=== PATIENT | female | born 1995 | race Two or more races ===

== ENCOUNTER 2019-02-01 23:06 | Emergency (ER) | payer MEDICAID ==
[~2019-02-01] VITALS: Ht 172.7 cm; Wt 68.5 kg
--- NOTE | 2019-02-01 23:20 | NUR ---
Pt. BIB [facility] for acute alcohol intoxication from home, pt. is drowsy w/ slurred speech, verbally responsive and obeys commands, RR even and unlabored, denies CP/JALLOH/F/C/SOB, states she had 2 cups of mixed run drink and smoked marijuana, roomate at bedside, VSS, bed in low position w/ guardrails up, monitoring from nurse station, NAD
[2019-02-01] MEDS ORDERED: IV NORMAL SALINE 1000 ML BAG IV ONE (23:30)
[2019-02-01] MEDS ORDERED: ONDANSETRON 4 MG/2 ML VIAL IV ONE (23:30)
--- NOTE | 2019-02-01 23:30 | NUR ---
20 gauge IV started to R AC - blood specimens collected and sent to lab, IV patent
[2019-02-01 23:37] LABS: BASOPHILS % (AUTO) 0.8 % (0.0-2.0); EOSINOPHILS % (AUTO) 0.6 % (0.0-7.0); HEMATOCRIT 38.5 % (31.2-41.9); HEMOGLOBIN 12.8 g/dL (10.9-14.3); LYMPHOCYTES # (AUTO) 1.5 K/uL (20.0-40.0); LYMPHOCYTES % (AUTO) 30.2 % (20.5-51.5); MEAN CORPUSCULAR HEMOGLOBIN 29.5 uug (24.7-32.8); MEAN CORPUSCULAR HGB CONC 33 g/dL (32.3-35.6); MEAN CORPUSCULAR VOLUME 88.9 fL (75.5-95.3); MONOCYTES # (AUTO) 0.4 K/uL (2.0-10.0); MONOCYTES % (AUTO) 7.9 % (0.0-11.0); NEUTROPHILS # (AUTO) 2.9 K/uL (1.8-8.9); NEUTROPHILS % (AUTO) 60.5 % (38.5-71.5); PLATELET COUNT (AUTO) 190 K/uL (179-408); RED BLOOD CELL COUNT(AUTO) 4.33 MIL/uL (3.63-4.92); WHITE BLOOD COUNT (AUTO) 4.8 K/uL (3.8-11.8)
[2019-02-01] MEDS ORDERED: ONDANSETRON 4 MG/2 ML VIAL ONE (23:43)
[2019-02-01 23:48] LABS: CREATININE 0.8 mg/dL (0.6-1.3); POTASSIUM 3.2 mmol/L (3.5-5.1)
[2019-02-01 23:54] LABS: BILIRUBIN,DIRECT 0.1 mg/dL (0.0-0.2); BILIRUBIN,TOTAL 0.3 mg/dL (0.2-1.0); TOTAL PROTEIN, SERUM 7.3 g/dL (6.4-8.2)
--- NOTE | 2019-02-02 02:20 | NUR ---
Patient discharged to home in stable conditon. Written and verbal after care instructions given. Patient verbalizes understanding of instructions. Patient able to ambulate with stable gait. No acute distress reported. Patient stated she will be calling an uber.
[2019-02-02 02:47] VITALS: BP 100/63
== END 2019-02-02 02:20 | disposition home or self-care (01) ==
LOC: ER 23:07
DX: F10.129 Alcohol abuse with intoxication, unspecified (principal); F41.9 Anxiety disorder, unspecified; Y90.1 Blood alcohol level of 20-39 mg/100 ml
CPT/HCPCS: 36415; 80048; 80076; 84702; 85025; 96361; 96374; 99283; G0480; J2405; A4663; J7030